=== PATIENT | female | born 2000 | race Caucasian/White ===

== ENCOUNTER 2023-11-21 14:43 | Outpatient (CLI) | payer OTHER, SELFPAY ==
--- NOTE | ~2023-11-21 | XR_ITS ---
XR abdomen/kub 1V Ordering provider: Luz Roberts, PUBLIC RELATIONS SPECIALIST History: . constipation/general abdomen pain x2 yrs. . Comparison: None. FINDINGS: BOWEL: Nonobstructive bowel gas pattern. ORGANOMEGALY: None. SIGNIFICANT PATHOLOGIC CALCIFICATIONS: None. OTHER: No free air is seen under the diaphragm. IMPRESSION: NO ACUTE ABDOMINAL FINDINGS. Reviewed, dictated and finalized at location A.
== END 2023-11-21 14:44 | disposition home or self-care (01) ==
PROVIDERS: PCP Internal Medicine; Visit Provider Nurse Practitioner Family
DX: K59.00 Constipation, unspecified (principal)
CPT/HCPCS: 74018

== ENCOUNTER 2024-05-11 09:39 | Outpatient (CLI) | payer OTHER, SELFPAY | END 2024-05-11 09:40 | disposition home or self-care (01) | PROVIDERS: PCP Internal Medicine; Visit Provider Specialist | DX: R10.30 Lower abdominal pain, unspecified (principal) | CPT/HCPCS: 88305 ==

== ENCOUNTER 2025-01-10 07:36 | Outpatient (RCR) | payer OTHER, SELFPAY ==
--- NOTE | 2025-01-10 09:50 | OPREHPOC ---
Outpatient Therapy Plan of Care This is a Multidisciplinary Plan of Care that may contain components documented by all disciplines (PT, OT, and ST.) PT Problem 1 PT Problem #1 Knowledge Deficit PT Goal 1 Goal / Goal Update independent and compliant with HEP Target Visit 2 PT Problem 2 PT Problem #2 Impaired Functional Mobility PT Goal 1 Goal / Goal Update patient to display ability to run 1 mile without pain or symptoms. Target Visit 2
--- NOTE | 2025-01-10 09:50 | PTOPEVAL1 ---
Assessment and note entered by JT File, PT Evaluation Information Assessment Status Evaluation ICD-10 Condition Codes (PT) Pain in left knee M25.562 Onset 09/30/24 Subjective Information patient reports she is coming to skilled PT for evaluation of pain in the L knee. she reports the pain started following a half marathon. she reports she tried to do a short run after that but had severe pain during that run. she reports she had a good training session and warm-up prior to the half marathon. she reports in highschool she had patella femoral issues and the knee cap would pop out on her. she reports she is an avid runner. she reports it currently hurst to walk up and down steps, up and down hills, but walking on level ground is fine. she reports she is able to run about 1/2 mile before the symptoms come on. she reports she is able to workout without issues, but really just cant get back to running. Reported Pain Level Pain Score 0: Self Report Assessment PT Clinical Summary ms. perez presents to skilled PT services for evaluation and treatment of L knee pain. she reports pain and subjective functional limitations consistent with a possible meniscus tear or ITB syndrome. she is negative for special testing of the L knee today. continued skilled PT will focus on improving her strength, stability, and return to prior level functional activities to improve her quality of life. Plan of Care Interventions Electrical Stimulation,Gait Training,Hot Pack/Cold Pack,Manual Therapy,Neuro Re-education,Patient/ Caregiver Education,Therapeutic Activities, Therapeutic Exercise PT Services Indicated Yes Treatment Frequency and 2x week for 2 visits Duration These treatments will address the objective and functional deficits as defined above. The patient will be advanced safely and appropriately in order for the patient to progress towards his/her prior level of function. Additional exercises will be introduced and as well as a comprehensive home exercise program upon discharge, if needed, ?to ensure carryover of functional gains achieved in the clinic. This treatment plan has been reviewed and agreement upon by the patient.
== END 2025-01-12 20:00 | disposition home or self-care (01) ==
LOC: CHSPT 07:36
PROVIDERS: PCP Nurse Practitioner Family; Visit Provider Nurse Practitioner Family
DX: M25.562 Pain in left knee (principal)
CPT/HCPCS: 97110; 97140; 97161